=== PATIENT | male | born 1995 | race Caucasian/White ===

== ENCOUNTER 2023-08-19 16:58 | Emergency (ER) | payer OTHER, SELFPAY ==
[2023-08-19 17:04] VITALS: BP 152/97; PULSE 85; RESP 20; TEMP 36.6; O2SAT 99; BMI 34.4
== END 2023-08-19 18:30 | disposition left against medical advice (07) ==
LOC: ER 17:13
PROVIDERS: Emergency Provider Emergency Medicine
DX: Z53.21 Procedure and treatment not carried out due to patient leaving prior to being seen by health care provider (principal)

== ENCOUNTER 2023-08-20 11:44 | Emergency (ER) | payer OTHER, SELFPAY ==
[2023-08-20] VITALS (11 sets, daily range): BP systolic 144–147; BP diastolic 79–89; PULSE 56–74; RESP 11–19; TEMP 36.8; O2SAT 94–100; BMI 34.4
--- NOTE | 2023-08-20 11:53 | ECG_ITS ---
The 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
--- OUTSIDE RECORDS SUMMARY | 2023-08-20 11:54 | XMS_ITS | CCD ---
Author Name Unknown Address [address] [place] [address] Organization [facility] Care Team Providers Care Retail Analyst Name Role Phone THOMAS RAMIREZ Attending Unavailable Problems Problem Classification Problem Date Documented Da te Episodic/Chronic Disorders of teeth and jaw (1 source) Impacted teeth; Translations: [Impacted teeth] Onset: 08-18-2023 Episodic Encounters Encounter Date Encounter Type Care Provider Facility Start: 08-18-2023 End: 08-18-2023 Emergency department patient visit [facility] Payers Date Payer Category Payer Unknown [id number] 1995 Unknown [id number] Summary Purpose Family History No Family History Records Found Advance Directives No Advanced Directives Records Found Additional Source Comments (unrecognized sect ion and content) No Status Records Found INFORMATION SOURCE (unrecogn ized section and content) DATE CREATED AUTHOR 08/18/2023 [facility] FOR RECORDS PERTAINING TO PATIENTS WHO ARE OR HAVE BEEN ENROLLED IN A CHEMICAL DEPENDENCY/SUBSTANCEABUSE PROGRAM, SOME INFORMATION MAY BE OMITTED. This clinical summary was aggregated from multiple sources. Caution should be exercised in using it in the provision of clinical care. This summary normalizes information from multiple sources, and as a consequence, information in this document may materially change the coding, format and clinical context of patient data. In addition, data may be omitted in some cases. CLINICAL DECISIONS SHOULD BE BASED ON THE PRIMARY CLINICAL RECORDS. [employer] provides no warranty or guarantee of the accuracy or completeness of information in this document.
[2023-08-20] MEDS: PANTOPRAZOLE SODIUM 40 MG VIAL IV (12:05)
[2023-08-20] MEDS: HYOSCYAMINE SULFATE 0.125 MG TAB.SUBL SL (12:05)
[2023-08-20 12:06] LABS: Basophils Percent Auto 0.2 % (0.2-2.0); Eosinophils Percent Auto 0.9 % (0.9-7.0); Hemoglobin 14.9 g/dL (14.0-18.0); Immature Granulocytes Abs Auto 0.01 10^3/uL (0.00-0.03); Immature Granulocytes Pct Auto 0.2 % (0.0-0.5); Lymphocytes Absolute Auto 0.9 10^3/uL (1.2-3.8); Lymphocytes Percent Auto 19.3 % (20.5-60.0); Mean Corpuscular HGB Conc 35.5 g/dL (29.9-35.2); Mean Corpuscular Hemoglobin 29.3 pg (25.9-34.0); Mean Corpuscular Volume 82.7 fL (80.0-94.0); Monocytes Absolute Auto 0.3 10^3/uL (0.3-0.8); Monocytes Percent Auto 7.2 % (1.7-12.0); Neutrophils Absolute Auto 3.2 10^3/uL (1.4-6.5); Neutrophils Percent Auto 72.2 % (43.0-75.0); Red Blood Count 5.08 10^6/uL (4.70-6.10); Red Cell Distribution Width 12.1 % (11.0-15.0); White Blood Count 4.5 10^3/uL (4.0-11.0)
--- NOTE | 2023-08-20 12:18 | XR_ITS ---
The [address] [address] Patient Name: STEFAN STEPHENS MRN: [id number] date: 1995 Sex: M Assigned Patient Location: ED.MAIN Current Patient Location: ER Accession/Order Number: [id number] Exam Date: 08/20/2023 12:10 Report Date: 08/20/2023 12:26 At the request of: NEHA MARSHALL Procedure: XR acute abdomen series EXAMINATION: XR acute abdomen series HISTORY: chest pain, abdominal pain COMPARISON: No relevant comparison available. FINDINGS: LUNGS: No infiltrate, pneumothorax, or pleural effusion. MEDIASTINUM: No abnormal widening. BOWEL GAS PATTERN: Non-obstructed. FREE AIR: None. CALCIFICATIONS: None significant. BONES: No fracture or visible bone lesion. OTHER: Negative. XR/XR acute abdomen series IMPRESSION: Clear lungs Nonobstructive bowel gas pattern Electronically authenticated by: MARCIA LEE Date: 08/20/2023 12:26
[2023-08-20 12:21] LABS: Alanine Aminotransferase 52 U/L (16-63); Albumin Globulin Ratio 1.1; Albumin Level 4.2 g/dL (3.4-5.0); Alkaline Phosphatase 88 U/L (46-116); Anion Gap 15.6; Aspartate Amino Transferase 35 U/L (15-37); BUN Creatinine Ratio 10.4; Carbon Dioxide 24.7 mmol/L (21.0-32.0); Chloride 102 mmol/L (98-107); Estimated GFR (African America >60 (>=60); Estimated GFR (Non-African Ame >60 (>=60); Globulin 3.9 g/dL; Glucose 103 mg/dL (74-106); Potassium 3.3 mmol/L (3.5-5.1); Sodium 139 mmol/L (136-145); Total Protein 8.1 g/dL (6.4-8.2)
[2023-08-20 12:27] LABS: Platelet Count 27 10^3/uL (150-450)
--- NOTE | 2023-08-20 12:31 | ED_ITS ---
HPI - Abdominal Pain General Chief Complaint: Abdominal Pain Stated Complaint: ABDOMINAL PAIN VOMITING Time Seen by Provider: 08/20/23 11:47 Source: patient Mode of arrival: ambulance Limitations: no limitations History of Present Illness HPI narrative: Patient arrived by EMS for evaluation of abdominal pain and nausea for the last 3 days. He was evaluated at another hospital and diagnosed with dental infection and started on augmentin, which he is apparently allergic. He took one dose and the GI symptoms began. He said he has not taken any more since then. he admitted to history of ulcers and has not been taking he previously prescribed PPI. No vomiting or diarrhea. Related Data Previous Rx's Medication Instructions Recorded dexamethasone 4 mg tablet 20 mg (5 x 4 mg) PO DAILY 4 days 08/20/23 #20 tabs hyoscyamine sulfate 0.125 mg 0.125 mg PO Q6H PRN abdominal pain 08/20/23 sublingual tablet (Levsin/SL) #20 tabs ondansetron 4 mg disintegrating 4 mg PO Q6H PRN nausea and 08/20/23 tablet vomiting #20 tabs Allergies Allergy/AdvReac Type Severity Reaction Status Date / Time amoxicillin [From Augmentin] Allergy Severe Rash Verified 08/20/23 11:46 clavulanic acid Allergy Severe Rash Verified 08/20/23 11:46 [From Augmentin] PFSH PFSH Social History Smoking status: Current every day smoker Exam Narrative Exam Narrative: Nurses notes and vital signs reviewed and patient is not hypoxic. afebrile General: Well-appearing and in no apparent distress. Skin: Warm, dry, no pallor noted. Eye: Pupils are equal, round and EOMI. No scleral icterus. Ears, Nose, Mouth, and Throat: Oral mucosa is moist Cardiovascular: Regular Rate and Rhythm without murmur, gallop or rub. Respiratory: No accessory muscle use or respiratory distress. Lungs are clear to auscultation, no wheezing, rales or rhonchi Back: No CVA tenderness Musculoskeletal: normal ROM GI: Abdomen is soft, non-distended. Normal bowel sounds. No masses appreciated. No tenderness to palpation. No rebound, guarding, or rigidity noted. Neurological: A&O x4. No cranial nerve dysfunction observed. No truncal ataxia. Moves all extremities. Sensation intact. Psychiatric: Cooperative and interactive. Normal mood and affect. Constitutional Vital Signs, click to edit/add: Last Vital Signs Temp 98.2 F 08/20/23 11:46 Pulse 65 08/20/23 12:50 Resp 11 L 08/20/23 12:50 BP 144/79 H 08/20/23 11:46 Pulse Ox 96 08/20/23 12:50 O2 Del Method Room Air 08/20/23 11:46 Course Vital Signs Vital signs: Vital Signs Temperature 98.2 F 08/20/23 11:46 Pulse Rate 66 08/20/23 11:46 Respiratory Rate 18 08/20/23 11:46 Blood Pressure 144/79 H 08/20/23 11:46 Pulse Oximetry 100 08/20/23 11:46 Oxygen Delivery Method Room Air 08/20/23 11:46 Temperature 98.2 F 08/20/23 11:46 Pulse Rate 65 08/20/23 12:50 Respiratory Rate 11 L 08/20/23 12:50 Blood Pressure 144/79 H 08/20/23 11:46 Pulse Oximetry 96 08/20/23 12:50 Oxygen Delivery Method Room Air 08/20/23 11:46 MDM - Abdominal Pain MDM Narrative Medical decision making narrative: Patient was placed on cardiac tech and EKG obtained. Blood drawn and sent for evaluation. Patient received NS IVF. He got Zofran from EMS before arrival. He was given Levsin in the ED. XRays abd and chest obtained and were unremarkable. CMP unremarkable. LFT n egative. Lipase normal. CBC with normal WBC and Hb but markedly decreased platelets - only 27k. Spoke with lab and no clumping noted on smear. Call placed to Dr Lovelace - physical integration practitioner for hematology - to discuss. I spoke with Dr. Cuenca about this patient's thrombocytopenia. He recommended the following - CT scan of the abdomen pelvis to rule out splenomegaly, blood testing for mono, HIV, CMV antibody and Marjan-Enriquez virus antibody. He also recommended steroid burst including outpatient dexamethasone dosing of 20 mg/day x 4 days. He would like to see this patient on Friday, August 25, 2023 at 1:15 PM in his office. All of this was explained to the patient and he was agreeable. CT = unremarkable liver, gallbladder, adrenal glands and spleen, per radiologist. No other worrisome findings noted according to the radiologist's report including absence of enlarged pelvic lymph nodes or free pelvic fluid. Pickaway was negative. HIV, CMV and EBV are send outs and will be resulted in time for the patient to follow-up with the lace machine operator next week. All findings discussed with the patient and then reviewed once again with the patient and family members present, with the patient's permission. Patient discharged home with prescriptions for Zofran and Levsin and recommendation to maintain a clear liquid diet until his abdominal pain and nausea subsides. Diet and advance as tolerated. ED return if he worsens Lab Data Attestation: I reviewed the patient's lab results. Labs: Lab Results 08/20/23 08/20/23 Range/Units 11:50 13:37 WBC 4.5 (4.0-11.0) 10^3/uL RBC 5.08 (4.70-6.10) 10^6/uL Hgb 14.9 (14.0-18.0) g/dL Hct 42.0 (42.0-54.0) % MCV 82.7 (80.0-94.0) fL MCH 29.3 (25.9-34.0) pg MCHC 35.5 H (29.9-35.2) g/dL RDW 12.1 (11.0-15.0) % Plt Count 27 L* (150-450) 10^3/uL Neut % (Auto) 72.2 (43.0-75.0) % Lymph % (Auto) 19.3 L (20.5-60.0) % [place] % (Auto) 7.2 (1.7-12.0) % Eos % (Auto) 0.9 (0.9-7.0) % Baso % (Auto) 0.2 (0.2-2.0) % Neut # (Auto) 3.2 (1.4-6.5) 10^3/uL Lymph # (Auto) 0.9 L (1.2-3.8) 10^3/uL [place] # (Auto) 0.3 (0.3-0.8) 10^3/uL Eos # (Auto) 0.0 (0.0-0.7) 10^3/uL Baso # (Auto) 0.0 (0.0-0.1) 10^3/uL Abs Immat Gran (auto) 0.01 (0.00-0.03) 10^3/uL Imm/Tot Granulo (auto) 0.2 (0.0-0.5) % Sodium 139 (136-145) mmol/L Potassium 3.3 L (3.5-5.1) mmol/L Chloride 102 (98-107) mmol/L Carbon Dioxide 24.7 (21.0-32.0) mmol/L Anion Gap 15.6 BUN 8.0 (7.0-18.0) mg/dL Creatinine 0.77 (0.70-1.30) mg/dL Est GFR ( Amer) >60 (>=60) Est GFR (Non-Af Amer) >60 (>=60) BUN/Creatinine Ratio 10.4 Glucose 103 (74-106) mg/dL Calcium 9.0 (8.5-10.1) mg/dL Total Bilirubin 1.0 (0.2-1.0) mg/dL AST 35 (15-37) U/L ALT 52 (16-63) U/L Alkaline Phosphatase 88 (46-116) U/L Lactate Dehydrogenase 179 (85-227) U/L Total Protein 8.1 (6.4-8.2) g/dL Albumin 4.2 (3.4-5.0) g/dL Globulin 3.9 g/dL Albumin/Globulin Ratio 1.1 Lipase 13.0 L (16.0-77.0) U/L Monoscreen Negative (NEGATIVE) Imaging Data XR chest & Abd: Radiologist's impression: ITS Impressions Chest/Abdomen X-ray 08/20/23 12:18 IMPRESSION: Clear lungs Nonobstructive bowel gas pattern Electronically authenticated by: MARCIA LEE Date: 08/20/2023 12:26 Abdomen/Pelvis CT 08/20/23 13:30 IMPRESSION: 1. Right upper pole renal cystic lesion with calcifications. The presence of the calcifications raises the possibility of a diverticulum. If indicated this could be further evaluated with CT urogram on palpation nonemergent basis. Electronically authenticated by: BELA NIEVES Date: 08/20/2023 14:26 ECG Data Attestation: I personally reviewed and interpreted this ECG as follows: Interpretation: EKG interpretation: Emergency Department physician interpretation. Normal sinus rhythm at 60bpm. Right axis, normal intervals and no ST segment elevation or depression. Discharge Plan Discharge Chief Complaint: Abdominal Pain Clinical Impression: Abdominal pain, Thrombocytopenia Patient Disposition: Home, Self-Care Time of Disposition Decision: 14:53 Prescriptions / Home Meds: New dexamethasone 4 mg tablet 20 mg PO DAILY 4 Days Qty: 20 0RF ondansetron 4 mg tablet,disintegrating 4 mg PO Q6H PRN (Reason: nausea and vomiting) Qty: 20 0RF hyoscyamine sulfate [Levsin/SL] 0.125 mg tablet, sublingual 0.125 mg PO Q6H PRN (Reason: abdominal pain) Qty: 20 0RF Instructions: Abdominal Pain (ED), Thrombocytopenia (ED) Stand Alone Forms: Portal Instructions Referrals: Greta Lovelace MD [Physician] - 08/25/23 1:15 pm
[2023-08-20] MEDS: METHYLPREDNISOLONE SOD SUCC PF 125 MG/2 ML VIAL IVP (13:26)
--- NOTE | 2023-08-20 13:30 | CT_ITS ---
The [place] [id number] Patient Name: STEFAN STEPHENS MRN: [id number] date: 1995 Sex: M Assigned Patient Location: ER Current Patient Location: ER Accession/Order Number: [id number] Exam Date: 08/20/2023 13:50 Report Date: 08/20/2023 14:26 At the request of: NEHA MARSHALL Procedure: CT abdomen pelvis wo con EXAM: CT abdomen pelvis wo con HISTORY: abdominal pain COMPARISON: None. TECHNIQUE: Axial soft tissue windows of the abdomen and pelvis with coronal and sagittal reformats. CT dose reduction technique was used including Automated Exposure Control. Findings: Lack of intravenous contrast limits evaluation. ABDOMEN: The liver, gallbladder, spleen, and adrenal glands as well as pancreas are unremarkable. No renal stones or collecting system dilatation. There is a right upper pole cyst with calcifications. The bilateral ureters are nondilated. Evaluation of the bowel is limited given the absence of oral contrast. No bowel obstruction. The appendix is nondilated. The aorta is normal caliber. No enlarged abdominal lymph nodes or free abdominal fluid. Small fat-containing umbilicus hernia. Pelvis: The bladder is unremarkable. The prostate is nonenlarged. No enlarged pelvic lymph nodes or free pelvic fluid. No aggressive sclerotic or lytic osseous lesions. There is partial sacralization of the right L5 transverse process. CT/CT abdomen pelvis wo con IMPRESSION: 1. Right upper pole renal cystic lesion with calcifications. The presence of the calcifications raises the possibility of a diverticulum. If indicated this could be further evaluated with CT urogram on palpation nonemergent basis. Electronically authenticated by: BELA NIEVES Date: 08/20/2023 14:26
[2023-08-20 13:59] LABS: Lactate Dehydrogenase 179 U/L (85-227)
[2023-08-20 14:24] LABS: Mono Screen NEGATIVE (NEGATIVE)
[2023-08-21 06:10] LABS: HIV Ab/p24 Ag Screen Non Reactive (Non Reactive)
[2023-08-21 07:08] LABS: Cytomegalovirus (CMV) Ab, IgG >10.00 U/mL (0.00-0.59); Cytomegalovirus (CMV) Ab, IgM <30.0 AU/mL (0.0-29.9)
[2023-08-21 14:09] LABS: EBV Ab VCA, IgG >600.0 U/mL (0.0-17.9); EBV Ab VCA, IgM <36.0 U/mL (0.0-35.9); EBV Nuclear Antigen Ab, IgG >600.0 U/mL (0.0-17.9)
--- NOTE | 2023-08-22 08:19 | PC.NURSE ---
08/22/23 0819 pt send out labs from 08/20/[address] tin lara at this time, faxed to dr bradshaw office for upcoming appt. Migue Castillo RN
== END 2023-08-20 15:01 | disposition home or self-care (01) ==
PROVIDERS: Emergency Provider Emergency Medicine
DX: R10.9 Unspecified abdominal pain (principal); D69.6 Thrombocytopenia, unspecified; S00.31XA Abrasion of nose, initial encounter; W50.4XXA Accidental scratch by another person, initial encounter; F17.210 Nicotine dependence, cigarettes, uncomplicated
CPT/HCPCS: 36415; 74022; 74176; 80053; 83615; 83690; 85025; 86308; 86644; 86645; 86664; 86665; 87389; 93005; 96374; 96375; 99285; J2930

== ENCOUNTER 2023-08-25 07:33 | Outpatient (RCR) | payer OTHER, SELFPAY ==
[2023-08-25 14:27] LABS: Basophils Percent Auto 0.1 % (0.2-2.0); Hematocrit 41.8 % (42.0-54.0); Hemoglobin 14.7 g/dL (14.0-18.0); Immature Granulocytes Abs Auto 0.14 10^3/uL (0.00-0.03); Immature Granulocytes Pct Auto 1.1 % (0.0-0.5); Lymphocytes Absolute Auto 1.3 10^3/uL (1.2-3.8); Lymphocytes Percent Auto 10.5 % (20.5-60.0); Mean Corpuscular HGB Conc 35.2 g/dL (29.9-35.2); Mean Corpuscular Hemoglobin 29.4 pg (25.9-34.0); Mean Corpuscular Volume 83.6 fL (80.0-94.0); Mean Platelet Volume 12.6 fL (9.5-13.5); Monocytes Absolute Auto 0.6 10^3/uL (0.3-0.8); Monocytes Percent Auto 4.5 % (1.7-12.0); Neutrophils Absolute Auto 10.3 10^3/uL (1.4-6.5); Neutrophils Percent Auto 83.8 % (43.0-75.0); Platelet Count 167 10^3/uL (150-450); Red Cell Distribution Width 12.2 % (11.0-15.0); White Blood Count 12.2 10^3/uL (4.0-11.0)
[2023-08-25 14:56] LABS: Alanine Aminotransferase 32 U/L (16-63); Albumin Level 3.8 g/dL (3.4-5.0); Alkaline Phosphatase 71 U/L (46-116); Anion Gap 8.8; Aspartate Amino Transferase 9 U/L (15-37); BUN Creatinine Ratio 13.5; Bilirubin Total 0.4 mg/dL (0.2-1.0); Carbon Dioxide 31.8 mmol/L (21.0-32.0); Chloride 103 mmol/L (98-107); Estimated GFR (African America >60 (>=60); Estimated GFR (Non-African Ame >60 (>=60); Globulin 3.8 g/dL; Glucose 87 mg/dL (74-106); Lactate Dehydrogenase 135 U/L (85-227); Potassium 3.6 mmol/L (3.5-5.1); Sodium 140 mmol/L (136-145); Total Protein 7.6 g/dL (6.4-8.2)
== END 2023-09-10 23:59 | disposition home or self-care (01) ==
LOC: INF 07:33
PROVIDERS: Visit Provider Internal Medicine Hematology & Oncology
DX: D69.6 Thrombocytopenia, unspecified (principal); F17.210 Nicotine dependence, cigarettes, uncomplicated; R10.9 Unspecified abdominal pain
CPT/HCPCS: 36415; 80053; 83615; 85025; G0463

== ENCOUNTER 2023-10-06 07:26 | Outpatient (RCR) | payer OTHER, SELFPAY ==
[2023-10-06 12:18] LABS: Basophils Percent Auto 0.2 % (0.2-2.0); Eosinophils Absolute Auto 0.1 10^3/uL (0.0-0.7); Eosinophils Percent Auto 1.8 % (0.9-7.0); Hematocrit 44.6 % (42.0-54.0); Hemoglobin 15.4 g/dL (14.0-18.0); Immature Granulocytes Abs Auto 0.02 10^3/uL (0.00-0.03); Immature Granulocytes Pct Auto 0.4 % (0.0-0.5); Lymphocytes Absolute Auto 1.2 10^3/uL (1.2-3.8); Lymphocytes Percent Auto 22.4 % (20.5-60.0); Mean Corpuscular HGB Conc 34.5 g/dL (29.9-35.2); Mean Corpuscular Hemoglobin 29.1 pg (25.9-34.0); Mean Corpuscular Volume 84.2 fL (80.0-94.0); Monocytes Absolute Auto 0.4 10^3/uL (0.3-0.8); Monocytes Percent Auto 6.8 % (1.7-12.0); Neutrophils Absolute Auto 3.5 10^3/uL (1.4-6.5); Neutrophils Percent Auto 68.4 % (43.0-75.0); Red Cell Distribution Width 12.2 % (11.0-15.0); White Blood Count 5.1 10^3/uL (4.0-11.0)
[2023-10-06 12:45] LABS: Lactate Dehydrogenase 176 U/L (85-227)
[2023-10-06 12:56] LABS: Platelet Count 17 10^3/uL (150-450)
== END 2023-10-11 23:59 | disposition home or self-care (01) ==
LOC: INF 07:26
PROVIDERS: Visit Provider Internal Medicine Hematology & Oncology
DX: D69.6 Thrombocytopenia, unspecified (principal); J45.909 Unspecified asthma, uncomplicated; K21.9 Gastro-esophageal reflux disease without esophagitis; I10 Essential (primary) hypertension; F17.210 Nicotine dependence, cigarettes, uncomplicated; D69.3 Immune thrombocytopenic purpura; R10.30 Lower abdominal pain, unspecified
CPT/HCPCS: 36415; 83615; 85025; G0463

== ENCOUNTER 2023-10-12 10:00 | Outpatient (OUT) | payer OTHER, SELFPAY ==
--- NOTE | 2023-10-12 11:21 | PC.NURSE ---
1055: Pt. to [facility] amb. accompanied by for chemo teaching. Consent forms reviewed and questions addressed. Pt. and educated on what to expect with treatment and side effects to watch for. Instructed in maintaining good hydration and nutrition and when to seek medical attention if adverse reactions occur. Pt. and both relay understanding. 1125: Pt. and relay understanding of teaching. D/c'd amb. to home.
[2023-10-12 11:57] LABS: Alanine Aminotransferase 24 U/L (16-63); Albumin Globulin Ratio 1.2; Albumin Level 3.9 g/dL (3.4-5.0); Alkaline Phosphatase 84 U/L (46-116); Anion Gap 12.3; Aspartate Amino Transferase 10 U/L (15-37); BUN Creatinine Ratio 9.2; Bilirubin Total 0.3 mg/dL (0.2-1.0); Calcium 8.8 mg/dL (8.5-10.1); Carbon Dioxide 30.9 mmol/L (21.0-32.0); Chloride 105 mmol/L (98-107); Estimated GFR (African America >60 (>=60); Estimated GFR (Non-African Ame >60 (>=60); Globulin 3.2 g/dL; Glucose 109 mg/dL (74-106); Potassium 3.2 mmol/L (3.5-5.1); Sodium 145 mmol/L (136-145); Total Protein 7.1 g/dL (6.4-8.2)
[2023-10-12 12:00] LABS: Basophils Percent Auto 0.4 % (0.2-2.0); Eosinophils Absolute Auto 0.1 10^3/uL (0.0-0.7); Eosinophils Percent Auto 0.9 % (0.9-7.0); Hematocrit 42.7 % (42.0-54.0); Immature Granulocytes Abs Auto 0.04 10^3/uL (0.00-0.03); Immature Granulocytes Pct Auto 0.6 % (0.0-0.5); Lymphocytes Absolute Auto 2.2 10^3/uL (1.2-3.8); Lymphocytes Percent Auto 31.9 % (20.5-60.0); Mean Corpuscular HGB Conc 35.1 g/dL (29.9-35.2); Mean Corpuscular Hemoglobin 29.5 pg (25.9-34.0); Mean Corpuscular Volume 83.9 fL (80.0-94.0); Mean Platelet Volume 12.9 fL (9.5-13.5); Monocytes Absolute Auto 0.3 10^3/uL (0.3-0.8); Monocytes Percent Auto 3.7 % (1.7-12.0); Neutrophils Absolute Auto 4.3 10^3/uL (1.4-6.5); Neutrophils Percent Auto 62.5 % (43.0-75.0); Platelet Count 64 10^3/uL (150-450); Red Blood Count 5.09 10^6/uL (4.70-6.10); Red Cell Distribution Width 12.1 % (11.0-15.0); White Blood Count 6.8 10^3/uL (4.0-11.0)
[2023-10-13 08:11] LABS: HBsAg Screen Negative (Negative); Hep B Core Ab, Tot Negative (Negative); Hepatitis B Surf Ab Quant 15.4 mIU/mL (Immunity>9.9)
--- OUTSIDE RECORDS SUMMARY | 2023-10-20 12:21 | XMS_ITS | CCD ---
Author Organization [facility] Care Team Providers Care Plate Stacker Hand Name Role Phone ARACELI RAMIREZAN Attending Unavailable Jamil KEMP Attending Unavailable GAURANG, ALEJANDRO Primary Care Unavailable GAURANG, ALEJANDRO Primary Care Unavailable Allergies Allergy Classification Reported Allergen(s) Allergy Type Date of Onset Reaction(s) Facility (1 source) Amoxicillin / Clavulanate; Translations: [Augmentin] Drug Allergy [facility] Repository Problems Problem Classification Problem Date Documented Da te Episodic/Chronic Disorders of teeth and jaw (1 source) Impacted teeth; Translations: [Impacted teeth] Onset: 08-18-2023 Episodic Results Test Name Value Interpretation Reference Range Facil ity Consultation Noteon 10-08-19 24 Consultation Note [id number]#1.00 [facility] Physician Referralon 024 Physician Referral [id number]#1.00 [facility] Encounters Encounter Date Encounter Type Care Provider Facility Start: 10-21-2023 ambulatory [facility] Start: 09-07-2023 [facility] Start: 08-18-2023 End: 08-18-2023 Emergency department patient visit THOMAS RAMIREZ [facility] Payers Date Payer Category Payer Unknown [id number] 1995 Unknown [id number] 1995 Unknown [id number] Summary Purpose Family History No Family History Records FoundNo Family History Records Found Advance Directives No Advanced Directives Records FoundNo Advanced Directives Records Found Additional Source Comments (unrecognized sect ion and content) No Status Records FoundNo Status Records Found INFORMATION SOURCE (unrecogn ized section and content) DATE CREATED AUTHOR 08/20/2023 Yesi bhat DATE CREATED AUTHOR AUTHOR'S LAZARUS GARCÍA 10/19/2023 [facility] FOR RECORDS PERTAINING TO PATIENTS WHO [...] BE BASED ON THE PRIMARY CLINICAL RECORDS. [facility] [employer] provides no warranty or guarantee of the accuracy or completeness of information in this document.
--- OUTSIDE RECORDS SUMMARY | 2024-01-27 11:09 | XMS_ITS | CCD ---
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 ALEJANDRO LOVELACE Primary Care Physician ALEJANDRO LOVELACE Primary Care Unavailable ALEJANDRO LOVELACE Primary Care Unavailable Jamil KEMP Attending Unavailable Allergies Allergy Classification Reported Allergen(s) Allergy Type Date of Onset Reaction(s) Facility (2 sources) Amoxicillin / Clavulanate; Translations: [amoxicillin-cla vulanate] Drug Allergy Eruption of skin (disorder) [facility] Medications Current Medications Medication Drug Class(es) Dates Sig (Normalized) Sig (Original) ondansetron 4 mg disintegrating oral tablet (1 source) Serotonin-3 Receptor Antagonist Start: 09-10-2023 ondansetron 4 mg Dis Tab Refills(s) 0 Start Date: 09/10/23 Status: Ordered Problems Problem Classification Problem Date Documented Da te Episodic/Chronic Abdominal pain (3 sources) Periumbilical pain; Translations: [Periumbilical pain] Onset: 4 Episodic Coagulation and hemorrhagic disorders (1 source) Thrombocytopenic disorder 09-10-2023 Chronic Disorders of teeth and jaw (1 source) Impacted teeth; Translations: [Impacted teeth] Onset: 4 Episodic Esophageal disorders (3 sources) Gastroesophageal reflux disease without esophagitis; Translations: [Gastro-esophageal reflux disease without esophagitis] Onset: 4 Chronic Essential hypertension (1 source) Hypertensive disorder 09-10-2023 Chronic Gastroduodenal ulcer (except hemorrhage) (1 source) H/O: gastric ulcer 09-10-2023 Episodic Nausea and vomiting (2 sources) Nausea; Translations: [Nausea] Onset: 4 Episodic Other gastrointestinal disorders (1 source) Irritable bowel syndrome 09-10-2023 Chronic Other gastrointestinal disorders (2 sources) Diarrhea; Translations: [Diarrhea, unspecified] Onset: Episodic Other nutritional; endocrine; and metabolic disorders (1 source) Body mass index 30+ - obesity 10-21-2023 Chronic Other nutritional; endocrine; and metabolic disorders (1 source) Morbid obesity 10-21-2023 Chronic Other upper respiratory disease (1 source) Allergic rhinitis 09-10-2023 Chronic Results Test Name Value Interpretation Reference Range Facil ity Consent for Procedure/Surger yon 10-23-2023 Consent for Procedure/Surgery [id number]#1.00TIFF [facility] Facesheeton 10-22-2023 Facesheet [id number] 83#1.00TIFF [facility] Lab Reportson 10-22-2023 Lab Reports [id number] 80#1.00TIFF [facility] Ambulatory Visit Summaryon 0 10-21-2023 Ambulatory Visit Summary STEFAN STEPHENS :1995 Visit Date:10/21/2023 Ambulatory Visit Instructions Your Care Team Attending Physician - VIRIDIANA RAE, Jamil Ayala Primary Care Physician - DR. ALEJANDRO LOVELACE This Is Your Medications List Contact prescribing physician if questions or concerns ondansetron (ondansetron 4 mg Dis Tab) Procedures Performed Colonoscopy. Discharge Vitals Heart Rate (Peripheral) 72 Respiratory Rate 16 Blood Pressure 122/76 Height 175 cm Height 69 in Weight 108.9 kg Weight 239.58 lb BMI 35.56 Medications What When Instructions Unchanged ondansetron (ondansetron 4 mg Dis Tab) Contact prescribing physician if questions or concerns Allergies Augmentin (Rash) Problems Ongoing - Any problem that you are currently receiving treatment for. Allergic rhinitis BMI 35.0-35.9,adult Chronic abdominal pain GERD (gastroesophageal reflux disease) History of gastric ulcer HTN (hypertension) IBS (irritable bowel syndrome) Morbid obesity Thrombocytopenia Patient Survey You may receive a survey via text or e-mail asking about your office visit. Please share your experience with us by completing your survey. We appreciate your feedback and thank you for choosing us for your care. [facility] Consultation Noteon 10-08-19 24 Consultation Note [id number] 61#1.00TIFF [facility] Physician Referralon 024 Physician Referral [id number] F2#1.00TIFF [facility] Vital Signs Date Time Vital Sign Value Performing Clinician Isaiah hunter 10-21-2023 14:16-0400 Blood Pressure Location Jamil KEMP [facility] [place] 10-21-2023 14:16-0400 Diastolic blood pressure 76 mm[Hg] Jamil KEMP [facility] [place] 10-21-2023 14:16-0400 Heart rate 72 /min Jamil KEMP [facility] [place] 10-21-2023 14:16-0400 Respiratory rate 16 /min Jamil KEMP [facility] [place] 10-21-2023 14:16-0400 Systolic blood pressure 122 mm[Hg] Jamil KEMP [facility] [place] Encounters Encounter Date Encounter Type Care Provider Facility Start: 10-21-2023 End: 10-22-2023 ambulatory ALEJANDRO GAURANG Facility: [place] Start: 10-21-2023 End: 10-21-2023 Patient encounter procedure Jamil KEMP [facility] [place] [place] Start: 09-07-2023 ambulatory ALEJANDRO GAURANG Facility : [facility] Start: 08-18-2023 End: 08-18-2023 Emergency department patient visit [facility] Procedures Date Procedure Procedure Detail Performing Clinician Colonoscopy Jamil KEMP Payers Date Payer Category Payer Unknown [id number] 1995 Unknown [id number] 1995 Unknown [id number] Social History Date Type Detail Facility Start: 10-21-2023 Tobacco smoking status Ex-smoker (marie carreon) [facility] Sex Assigned At Male [facility] Functional Status Date Assessment Result Facility 10-21-2023 Functional Status N/A [facility] Clinical Note 10-21-2023 Note Date & Type Note Facility 10-21-2023 Note Chief Complaint consultation for abdominal pain HPI Staff 28 year old male presents on consultation from Dr. Lovelace for chronic episodic abdominal pain. Reports diffuse, intermittent stabbing abdominal pain for 15 years. Reports there is no pattern to stated pain. Reports he was on an ATB in August for dental issue. This resulted in an increase in frequency of ABD pain. Verbalized he currently is experiencing pain shortly after consuming a meal. Reports since taking ATB, he now is experiencing daily nausea. Reports nausea is primarily upon wakening but can experience nausea later in the day as well. Taking Zofran with positive effect. Denies vomiting. Denies rectal pain or bleeding. Last colonoscopy completed in 2017 while living in [place], report not immediately available. Patient unsure if any abnormalities were found. Patient is currently following with Dr. Terrazas for thrombocytopenia. History of Present Illness 28 yo male with h/o GERD, referred for mid abd pain nausea; recently diagnosed with ITP, being treated with steroids by Hematology; patient reports 15 yr h/o intermittent mid abd pain, sharp, no radiation, no triggers, chronic loose stools, no blood; had colonoscopy in 2017, unsure of results; recently had one dose of antibiotic for infected wisdom teeth, has had worsening abd pain and nausea since then; worse with activity during day; no problems at night; nausea controlled with Zofran, no change with eating, no change in loose stools, still several loose stools/day; no emesis; recent normal abd/pelvic ct scan; no asa or NSAID use; no fmhx of GI malignancy or IBD; vapes nicotine containing substances. Review of Systems PHQ Score Initial Depression Screen Score: 0 SCORE ROS - Provider Constitutional: no fever, no sweats, no weight loss. Eyes: no glasses, no blurred vision, no visual loss. ENMT: no dentures, no hoarseness, no swallowing difficulties, no hearing loss, no ear infection(s), no nose bleeds. Cardiovascular: normal blood pressure, no chest pain, regular heartbeat, no heart murmur. Respiratory: no shortness of breath, no cough, no asthma, no wheezing. Gastrointestinal: no nausea, no vomiting, no diarrhea, no constipation, no blood in stool, no change in bowel habits, no abdominal pain, no hepatitis. Genitourinary: no kidney stones, no urine infection, no dysuria. Musculoskeletal: no pain, no weakness. Skin: no changing moles, no rash, no skin lumps. Neurologic: no seizures, no epilepsy, no headache. Psychiatric: no emotional or psychiatric problem. Heme/Lymph: no bleeding problems, no anemia, no blood clots, no transfusions. Allergy/Immunologic: no swollen lymph nodes/glands, no IV drug abuse. Other: Additional ROS info: Except as noted in the above Review of Systems and in the History of Present Illness, all other systems have been reviewed and are negative or noncontributory. Physical Exam Vitals & Measurements HR: 72(Peripheral) RR: 16 BP: 122/76 HT: 69 in HT: 175 cm WT: 108.9 kg WT: 239.58 lb BMI: 35.56 HEENT: normal conjunctiva, sclera clear, no scleral icterus, EOM intact, PERRLA, oral mucosa moist without lesions. Neck: trachea midline, no mass, symmetric, no thyromegaly or nodules, no adenopathy Respiratory: lungs CTA, respirations non labored. Cardiovascular: regular rate and rhythm, no murmur, no pedal edema or varicosities. Gastrointestinal: soft, non distended, mild tenderness, mid abd no masses, no palpable hernias, diastasis recti no, no hepatosplenomegaly; normal bs Lymphatic: no cervical adenopathy, no supraclavicular adenopathy. Musculoskeletal: normal gait, digits and nails without infection, nodes, cyanosis, clubbing. Skin: no rashes, no lesions, no ulcers, no subcutaneous nodules, induration. Psychiatric/Neuro: oriented to time, place, person, judgement normal, affect appropriate for age, insight intact, no focal deficits. Tests: labs reviewed, x-rays reviewed, review of old records completed , Discussed surgical options, risks, and possible complications with patient. Assessment/Plan 1. Frequent loose stools (R19.7: Diarrhea, unspecified) plan EGD and colonoscopy under anesthesia for further evaluation, informed consent obtained. recheck platelet count day of procedure since it has been very volatile. 2. Abdominal pain, periumbilical (R10.33: Periumbilical pain) see # 1 3. Nausea (R11.0: Nausea) see # 1 4. Chronic GERD (K21.9: Gastro-esophageal reflux disease without esophagitis) see # 1 Follow-up No qualifying data available Problem List/Past Medical History Ongoing Abdominal pain, periumbilical Allergic rhinitis BMI 35.0-35.9,adult Chronic abdominal pain Chronic GERD Frequent loose stools GERD (gastroesophageal reflux disease) History of gastric ulcer HTN (hypertension) IBS (irritable bowel syndrome) Morbid obesity Nausea Thrombocytopenia Historical No qualifying data Procedure/Surgical History Colonoscopy. Medications ond (more content not included)... [facility] Comment on above: Result Comment: Elec tronically Signed By: VIRIDIANA RAE, Jamil Metcalf\Date and Time Signed: 10/21/23 15:02 EDT Evaluation + Plan note Note Date & Type Note Facility Evaluation + Plan note No data available for this section [facility] [place] [facility] Discharge instructions Note Date & Type Note Facility Hospital Discharge instructions No data available for this section [facility] [place] Progress note Note Date & Type Note Facility Progress note No data available for this section [facility] [place] Summary Purpose Family History No Family History Records Found No data available for this section No Family History Records Found Advance Directives No Advanced Directives Records FoundNo Advanced Directives Records Found Additional Source Comments (unrecognized sect ion and content) No Status Records FoundNo Status Records Found INFORMATION SOURCE (unrecogn ized section and content) DATE CREATED AUTHOR 08/20/2023 Yesi bhat DATE CREATED AUTHOR AUTHOR'S ORGANIZ ATION 10/24/2023 [facility] Patient Care team informatio n (unrecognized section and content) Personnel Name: DR. ALEJANDRO LOVELACE Address: Address[address] [place] [address] FOR RECORDS PERTAINING TO PATIENTS WHO ARE [...] BE BASED ON THE PRIMARY CLINICAL RECORDS. [facility]. provides no warranty or guarantee of the accuracy or completeness of information in this document.
--- OUTSIDE RECORDS SUMMARY | 2024-01-27 11:16 | XMS_ITS | CCD ---
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 [facility] Consultation Noteon 10-08-19 24 Consultation Note [id number] 61#1.00TIFF [facility] Physician Referralon 024 Physician Referral [id number] F2#1.00TIFF [facility] Vital Signs Date Time Vital Sign Value Performing Clinician Isaiah hunter 10-21-2023 14:16-0400 Blood Pressure Location Jamil KEMP [facility] [place] 10-21-2023 14:16-0400 Diastolic blood pressure 76 mm[Hg] Jamil KEMP [facility] [place] 10-21-2023 14:16-0400 Heart rate 72 /min Jamil KEMP [facility] [place] 10-21-2023 14:16-0400 Respiratory rate 16 /min Jamil KEMP [facility] [place] 10-21-2023 14:16-0400 Systolic blood pressure 122 mm[Hg] Jamil KEMP [facility] [place] Encounters Encounter Date Encounter Type Care Provider Facility Start: 10-21-2023 End: 10-22-2023 ambulatory ALEJANDRO GAURANG Facility: [place] Start: 10-21-2023 End: 10-21-2023 Patient encounter procedure Jamil KEMP [facility] [place] [place] Start: 09-07-2023 ambulatory ALEJANDRO GAURANG Facility : [facility] Start: 08-18-2023 End: 08-18-2023 Emergency department patient visit [facility] Procedures Date Procedure Procedure Detail Performing Clinician Colonoscopy Jamil KEMP Payers Date Payer Category Payer Unknown [id number] 1995 Unknown [id number] 1995 Unknown [id number] Social History Date Type Detail Facility Start: 10-21-2023 Tobacco smoking status Ex-smoker (marie carreon) [facility] [place] Sex Assigned At Male [facility] Functional Status Date Assessment Result Facility 10-21-2023 [...] colonoscopy completed in 2017 while living in [place], report not immediately available. Patient unsure if [...] Colonoscopy. Medications ond (more content not included)... [facility] Comment on above: Result Comment: Elec tronically Signed By: VIRIDIANA RAE, Jamil Metcalf\Date and Time Signed: 10/21/23 15:02 EDT Evaluation + Plan note Note Date & Type Note Facility Evaluation + Plan note No data available for this section [facility] [place] [facility] Discharge instructions Note Date & Type Note Facility Hospital Discharge instructions No data available for this section [facility] [place] Progress note Note Date & Type Note Facility Progress note No data available for this section [facility] [place] Summary Purpose Family History No Family History [...] DATE CREATED AUTHOR AUTHOR'S ORGANIZ ATION 10/24/2023 [facility] Patient Care team informatio n (unrecognized section and content) Personnel Name: DR. ALEJANDRO LOVELACE Address: Address: [address] [place] [address] FOR RECORDS PERTAINING TO PATIENTS WHO ARE [...] BASED ON THE PRIMARY CLINICAL RECORDS. [facility]. provides no warranty or guarantee of the accuracy or completeness of information in this document.
== END 2023-10-12 16:00 | disposition home or self-care (01) ==
PROVIDERS: Visit Provider Internal Medicine Hematology & Oncology
DX: D69.6 Thrombocytopenia, unspecified (principal); D69.3 Immune thrombocytopenic purpura; Z51.12 Encounter for antineoplastic immunotherapy
CPT/HCPCS: 36415; 80053; 85025; 86317; 86704; 87340; 99211